=== PATIENT | male | born 1985 | race Caucasian/White ===

== ENCOUNTER 2016-10-01 14:38 | Emergency (ER) | payer MEDICAID ==
[~2016-10-01] VITALS: Ht 175.3 cm; Wt 96.5 kg
[2016-10-01 14:41] VITALS: Ht 175.3 cm; Wt 96.5 kg
[2016-10-01] MEDS ORDERED: IBUP800T25 PO (18:37)
--- NOTE | 2016-10-01 18:41 | ERD ---
ER Documentation Chief Complaint Date/Time DATE: 10/01/16 TIME: 18:38 Chief Complaint BIB SELF C/O RIGHT FOOT PAIN S/P 50LBS WEIGHT FALLING ON FOOT HPI 30-year-old male patient with no significant past medical history presents the ED complaining of right foot pain that occurred 2 days ago after he was weightlifting. Reports that someone accidentally dropped a 50 pound weight onto his right foot. Denies any fever, chills, loss of sensation, loss of range of motion, weakness, numbness or tingling. States that he is still able to ambulate however he is limping. Denies any ankle, knee pain. ROS All systems reviewed and are negative except as per history of present illness. Medications Home Meds Active Scripts Ibuprofen* (Motrin*) 800 Mg Tab, 800 MG PO Q6, #30 TAB take with food Prov:NAUN VALDOVINOS PA-C 10/01/16 Allergies Allergies: Coded Allergies: No Known Allergy (Unverified , 10/01/16) PMhx/Soc Medical and Surgical Hx: pt denies Medical Hx, pt denies Surgical Hx Hx Alcohol Use: Yes Hx Substance Use: No Hx Tobacco Use: No Smoking Status: Never smoker Physical Exam Vitals Vital Signs Date Time Temp Pulse Resp B/P Pulse Ox O2 Delivery O2 Flow Rate FiO2 10/01/16 14:41 98.5 81 18 133/74 98 Physical Exam Const: Gde-qct-[id number], well-nourished. In no acute distress. Head: Atraumatic, normocephalic Eyes: Normal Conjunctiva without injection ENT: Normal external ear, nose and mouth. Neck: Full range of motion. No meningismus. Resp: Clear to auscultation bilaterally. No wheezing, rhonchi, rales, or crackles. No accessory muscle use. No retractions. Cardio: Regular rate and rhythm, no murmurs Skin: No petechiae or rashes Back: No midline tenderness. No CVA tenderness. Ext: No cyanosis, or edema. Cap refill less than 2 seconds. Distal pulses intact bilaterally. Tenderness to palpation of the dorsal aspect of patient's right foot. Erythema, edema noted. No pitting edema noted. No warmth to touch. Neur: Awake and alert. Normal gait and coordination. Muscle strength 5/5. Sensation intact bilaterally. Psych: Normal Mood and Affect Procedures/MDM This is a 30-year-old male patient with no significant past medical history presents the ED complaining of right foot pain after a crush injury from a 50 lb weight. Patient is afebrile and nontoxic-appearing. Patient has normal vital signs. A right foot x-ray was ordered to further evaluate patient. Patient denied wanting any pain medications. PROCEDURE: XR Right Foot CLINICAL INDICATION: Crush injury TECHNIQUE: AP, oblique, and lateral radiographs were submitted. COMPARISON: None FINDINGS: Osseous structures: appear well mineralized and intact with no fracture or destructive process identified. Joint spaces: are well maintained, with no significant spurring, erosion or joint effusion evident. Soft tissues: There is dorsal soft tissue swelling. IMPRESSION: 1. No fracture or dislocation is identified. 2. Dorsal soft tissue swelling. Patient is placed in a posterior ankle splint.. Crutches were given to patient to help with ambulation. Splint Assessment: Neurovascularly intact pre and post splint placement with good fit. Patient's extremity symptoms have stabilized while they have been evaluated in the department and are appropriate for outpatient follow up. No evidence of fractures, dislocations, compartment syndrome, neurologic injury, vascular injury, open joint, open fracture, tendon laceration, septic arthritis, osteomyelitis, DVT, foreign body, or other emergent conditions. Discharge medications: Ibuprofen Follow up with primary care physician in 1-2 days. Instructed patient to return to the ED sooner for any worsening symptoms. Patient's questions were answered. Patient understood and agreed with discharge plan. Patient discharged stable. Departure Diagnosis: Primary Impression: Injury of foot Encounter type: initial encounter Laterality: right Qualified Code: S99.921A - Injury of foot, right, initial encounter Condition: Stable Patient Instructions: Crush Injury, Foot/Toe Referrals: COMMUNITY CLINICS YOU HAVE RECEIVED A MEDICAL SCREENING EXAM AND THE RESULTS INDICATE THAT YOU DO NOT HAVE A CONDITION THAT REQUIRES URGENT TREATMENT IN THE EMERGENCY DEPARTMENT. FURTHER EVALUATION AND TREATMENT OF YOUR CONDITION CAN WAIT UNTIL YOU ARE SEEN IN YOUR DOCTORS OFFICE WITHIN THE NEXT 1-2 DAYS. IT IS YOUR RESPONSIBILITY TO MAKE AN APPOINTMENT FOR FOLOW-UP CARE. IF YOU HAVE A PRIMARY DOCTOR --you should call your primary doctor and schedule an appointment IF YOU DO NOT HAVE A PRIMARY DOCTOR YOU CAN CALL OUR PHYSICIAN REFERRAL HOTLINE AT IF YOU CAN NOT AFFORD TO SEE A PHYSICIAN YOU CAN CHOSE FROM THE FOLLOWING COMMUNITY CLINICS [facility] [address] [facility] [address] [place] [facility] [place] [address] [facility] [address] [facility] [address] [facility] [address] [facility]. [facility] YOU HAVE RECEIVED A MEDICAL SCREENING EXAM AND THE RESULTS INDICATE THAT YOU DO NOT HAVE A CONDITION THAT REQUIRES URGENT TREATMENT IN THE EMERGENCY DEPARTMENT. FURTHER EVALUATION AND TREATMENT OF YOUR CONDITION CAN WAIT UNTIL YOU ARE SEEN IN YOUR DOCTORS OFFICE WITHIN THE NEXT 1-2 DAYS. IT IS YOUR RESPONSIBILITY TO MAKE AN APPOINTMENT FOR FOLOW-UP CARE. IF YOU HAVE A PRIMARY DOCTOR --you should call your primary doctor and schedule and appointment IF YOU DO NOT HAVE A PRIMARY DOCTOR YOU CAN CALL OUR PHYSICIAN REFERRAL HOTLINE AT . IF YOU CAN NOT AFFORD TO SEE A PHYSICIAN YOU CAN CHOSE FROM THE FOLLOWING [facility] INSTITUTIONS: [facility] [address] [place] [address] [facility] [address] [place] [address] [facility] [address] [place] [address] [facility] Urgent Care 7 a.m.- 11 p.m. Every Day of the Week NO APPOINTMENT OR AUTHORIZATION NEEDED [facility] Hours: Mon-Fri 9:00 AM - 5:00 PM Additional Instructions: FOLLOW UP WITH YOUR PRIMARY CARE PHYSICIAN TOMORROW for a referral to an orthopedic physician.Return to this facility if you are not improving as expected. NAUN VALDOVINOS PA-C Oct 01, 2016 18:41
--- NOTE | 2016-10-01 18:42 | RADRPT ---
PROCEDURE: XR Right Foot CLINICAL INDICATION: Crush injury TECHNIQUE: AP, oblique, and lateral radiographs were submitted. COMPARISON: None FINDINGS: Osseous structures: appear well mineralized and intact with no fracture or destructive process iden tified. Joint spaces: are well maintained, with no significant spurring, erosion or joint effusion evident. Soft tissues: There is dorsal soft tissue swelling. IMPRESSION: 1. No fracture or dislocation is identified. 2. Dorsal soft tissue swelling. Physician Alex Date Time Electronically viewed and signed by Physician Alex on 10/01/2016 18:41 RH/
== END 2016-10-01 20:59 | disposition left against medical advice (07) ==
LOC: FTE 14:38
DX: S99.921A Unspecified injury of right foot, initial encounter (principal); W20.8XXA Other cause of strike by thrown, projected or falling object, initial encounter; Y92.9 Unspecified place or not applicable
CPT/HCPCS: 73630

== ENCOUNTER 2017-01-06 04:02 | Emergency (ER) | payer SELFPAY ==
[~2017-01-06] VITALS: Ht 175.3 cm; Wt 95.5 kg
[~2017-01-06 04:02] MED LIST: IBUP800T25 PO
[2017-01-06 04:17] VITALS: Ht 175.3 cm; Wt 95.5 kg
== END 2017-01-06 05:14 | disposition left against medical advice (07) ==
LOC: E/R 04:02
DX: Z53.21 Procedure and treatment not carried out due to patient leaving prior to being seen by health care provider (principal)